=== PATIENT | female | born 1955 | race Caucasian/White ===

== ENCOUNTER → 2016-12-24 | Outpatient (CLI) | payer OTHER ==
--- NOTE | 2016-12-24 11:26 | REPMRS ---
Patient History The patient states she had a clinical breast exam in 10/2016. Patient is postmenopausal. Family history of pancreatic cancer in 2 paternal aunts and pancreatic cancer in 2 paternal uncles. Implants in both breasts, 2000. Digital Woman Screen Mammo: December 24, 2016 - Exam #: [id number] Bilateral CC and MLO view(s) were taken. Technologist: Juliette Villarreal, Technologist Prior study comparison: December 24, 2015, digital woman screen mammo performed at [facility]. December 21, 2014, digital woman screen mammo performed at [facility]. December 20, 2013, digital woman screen mammo performed at [facility]. FINDINGS: There are scattered fibroglandular densities. The visualized implant margins are smooth. Breast parenchymal density pattern is essentially symmetric. No dominant mass, clustered microcalcification, or archetectural distortion is evident on either side. No significant changes when compared with prior studies. ASSESSMENT: BI-RADS/ACR category 2 mammogram. Benign finding(s). Recommendation Routine screening mammogram of both breasts in 1 year (for women over age 40). Electronically Signed By: Jonny Anderson MD 12/24/16 [id number]
== END ==
LOC: M WHC 10:22
PROVIDERS: ATTEND Family Medicine
DX: Z12.31 Encounter for screening mammogram for malignant neoplasm of breast (principal); Z78.0 Asymptomatic menopausal state

== ENCOUNTER → 2017-12-21 | Outpatient (CLI) | payer OTHER | LOC: M WHC 10:51 | DX: Z12.31 Encounter for screening mammogram for malignant neoplasm of breast (principal); M85.80 Other specified disorders of bone density and structure, unspecified site | CPT/HCPCS: 77067 ==

== ENCOUNTER → 2018-12-22 | Outpatient (CLI) | payer OTHER ==
--- NOTE | 2018-12-22 11:18 | REPMRS ---
Patient History The patient states she has not had a clinical breast exam in over a year. Family history of pancreatic cancer in paternal uncle, pancreatic cancer in paternal aunt, pancreatic cancer in paternal uncle, pancreatic cancer in paternal aunt. Implants in both breasts, 2001. 3D TOMOSYNTHESIS WAS PERFORMED. The Heather Roman lifetime risk for breast cancer is 5.0%. Digital Woman Screen Mammo: December 22, 2018 - Exam #: [id number] Bilateral CC and MLO view(s) were taken. Technologist: Tessa Vieira Technologist Prior study comparison: December 21, 2017, bilateral digital woman screen mammo performed at [facility]. December 24, 2016, digital woman screen mammo performed at [facility]. FINDINGS: There are scattered fibroglandular densities. There has been no change in the appearance of the mammogram from the prior studies. There is a mild amount of residual fibroglandular tissue which is fairly symmetric. There is no interval development of dominant mass, architectural distortion, or clustered microcalcification suggestive of malignancy. Assessment: BI-RADS/ACR category 1 mammogram. Negative Mammogram. Recommendation Routine screening mammogram in 1 year (for women over age 40). This mammogram was interpreted with the aid of an FDA-approved computer-aided dectection system. Electronically Signed By: Matt Salomon MD 12/22/18 [id number]
== END ==
LOC: M WHC 09:50
PROVIDERS: ATTEND Family Medicine
DX: Z12.31 Encounter for screening mammogram for malignant neoplasm of breast (principal); Z80.0 Family history of malignant neoplasm of digestive organs; Z98.82 Breast implant status

== ENCOUNTER → 2019-12-23 | Outpatient (CLI) | payer MEDICARE ==
--- NOTE | 2020-01-06 14:19 | DEXA ---
AP SPINE L1 - L4 0.991 -1.6 -0.1 LT FEMUR TOTAL 0.981 -0.2 1.0 LT NECK 0.848 -1.4 0.1 RT FEMUR TOTAL 0.925 -0.7 0.5 RT NECK 0.845 -1.4 0.1 TOTAL BODY TOTAL OTHER COMMENTS: There is low bone density of the spine and hips. The density of the spine has decreased 6.3% since the initial exam on 09/02/2007. The decreased 1.8% since the most recent exam on 12/21/2017. The density of the left hip has decreased 1.1% since the initial exam on 09/02/2007. The density of the left hip has decreased 1.4% since the most recent exam on 12/21/2017. The density of the right hip has decreased 5.8% since the initial exam on 09/02/2007. The density of the right hip has decreased 1.5% since the most recent exam on 12/21/2017. FOLLOW-UP: Recommendation for the next bone density exam: 2 years. GERA
--- NOTE | 2020-01-13 11:59 | REP ---
BILATERAL MAMMOGRAM WITH 3D TOMOSYNTHESIS HISTORY: No family history of breast cancer. Tyrer-zick lifetime risk of breast cancer 4.8%. COMPARISON: Mammogram 12/22/2018, as well as other prior exams. TECHNIQUE: Bilateral mammography performed in the MLO and CC projections with routine views obtained, as well as implant displaced views with 3D tomosynthesis. FINDINGS: There is mild scattered fibroglandular density seen bilaterally. Volpara breast density is C. There is no gross extracapsular rupture of either breast implant, with no definite change compared to prior studies. On the implant displaced views of the right breast on the MLO projection, note is made of an oval smoothly marginated nodular density measuring about 9 x 6 mm superiorly. There is a possible adjacent 7 x 4 mm nodular density just inferior to this. These are definitely seen on the implant displaced right CC view, but there is a suggestion of an oval nodule on the right CC view without implant displaced. This is slightly laterally located. Otherwise no mass is seen bilaterally, and there are no suspicious clusters of microcalcifications. IMPRESSION: ACR 0 incomplete. Possibly one or two nodular opacities in the upper outer quadrant of the right breast, the larger of the two measures 9 x 6 mm and the adjacent smaller more inferior nodular density measures 7 x 4 mm. Recommend additional compression views and ultrasound to further evaluate. This mammogram was interpreted with the aid of an FDA approved computer-aided detection system. The patient states she has not had a clinical breast exam in over one year. ACR 0 incomplete. Patient letter 0. MTDD
== END ==
LOC: M WHC 10:13
PROVIDERS: ATTEND Family Medicine
DX: R92.2 Inconclusive mammogram (principal); M85.851 Other specified disorders of bone density and structure, right thigh; M85.852 Other specified disorders of bone density and structure, left thigh; M85.88 Other specified disorders of bone density and structure, other site

== ENCOUNTER → 2019-12-30 | Outpatient (CLI) | payer MEDICARE ==
--- NOTE | 2020-01-13 12:42 | REP ---
DIGITAL DIAGNOSTIC UNILATERAL RIGHT BREAST MAMMOGRAPHY WITH CAD AND FOCUSED RIGHT BREAST SONOGRAPHY HISTORY: Screening mammography from 12/23/2019 was BI-RADS Category 0 because of a nodular density in the upper outer quadrant of the right breast. Diagnostic imaging was recommended. COMPARISON: Made with prior mammography the most recent of which is from 12/22/2018 and 12/21/2017. Remote prior mammograms were reviewed dated 12/24/2015 and 11/20/2011. MAMMOGRAPHIC FINDINGS: Magnified focal spot compression craniocaudal, ML, and MLO views confirm the presence of a well-circumscribed oval-shaped nodular density anterior to the augmentation implant margin. The nodule measures 7 mm in greatest diameter. It is felt to be visible on all three projections. Scattered fibroglandular elements are seen. No other mammographic abnormality is observed. On review, this is felt to be a chronic finding and is felt to be unchanged from prior mammography dated 11/20/2011. SONOGRAPHIC FINDINGS: Targeted ultrasound of the right breast is performed in the upper outer quadrant. At 10 o'clock, 4 cm from the nipple, there is a hypoechoic 10 x 6 x 4 mm oval-shaped area with well-defined back wall and enhanced through transmission. Its long axis is parallel to the skin. No other sonographic finding. Visualized implant margins are smooth. IMPRESSION: BI-RADS Category 2 benign findings. Small stable benign nodule upper outer quadrant right breast unchanged from remote prior mammograms. Repeat screening mammography recommended in one year. GERA
== END ==
LOC: M WHC 08:53
PROVIDERS: ATTEND Family Medicine
DX: N63.11 Unspecified lump in the right breast, upper outer quadrant (principal); M85.80 Other specified disorders of bone density and structure, unspecified site

== ENCOUNTER → 2020-12-13 | Outpatient (CLI) | payer MEDICARE, OTHER ==
--- NOTE | 2020-12-18 18:05 | SLEEPCENT ---
DATE: 12/13/2020 ORDERED BY: Gualberto Joaquin Nocturnal polysomnography was performed for evaluation of sleep physiology in this patient with a history of excessive somnolence and nonrestorative sleep. There was 7 hours and 41 minutes of data reviewed. There was 387.5 minutes of sleep identified. Sleep latency was prolonged at 26 minutes. REM latency was normal at 76 minutes. Sleep architecture showed fragmentation. There were four REM cycles noted. Overall sleep efficiency was 85.4%. The electrocardiogram showed a sinus rhythm with an average heart rate of 75 beats per minute. Rate ranged 60-100. EEG showed essentially normal waveforms for wake and sleep stages. There were 244 respiratory events identified of 10 seconds in duration or greater for an apnea-hypopnea index of 37.8. The events were obstructive, not exclusive to sleep stage nor body posture. Arousals from respiratory events occurred 13.2 times per hour, and oxygen desaturations fell into the 70s. There was some minor limb activity, and snoring was noted. IMPRESSION: Obstructive sleep apnea syndrome (G47.33). Apnea-hypopnea index 37.8. RECOMMENDATION: The patient should be encouraged to return to the sleep disorder center for pressure therapy. In the interim, alcohol and sedative avoidance should be practiced and caution exercised during the operation of motor vehicles.
== END ==
LOC: M SLEEP 20:00
PROVIDERS: ATTEND Physician Assistant
DX: G47.33 Obstructive sleep apnea (adult) (pediatric) (principal)

== ENCOUNTER → 2021-01-03 | Outpatient (CLI) | payer MEDICARE, OTHER ==
--- NOTE | 2021-01-07 16:30 | SLEEPCENT ---
DATE: 01/03/2021 ORDERED BY: GEMMA Joel Nocturnal polysomnography was performed for the titration of pressure therapy in this patient with obstructive sleep apnea syndrome, apnea-hypopnea index of 37.8. For testing a ResMed F20 full face mask of small size was used, 4 cm of water pressure were applied to the circuit, and the lights were extinguished. Seven hours and 37 minutes of data were reviewed. There were 366 minutes of sleep identified. Sleep latency was normal at 13 minutes. REM latency was short at 68 minutes. Sleep architecture was good with three REM cycles. Overall sleep efficiency was 81.4%. The electrocardiogram showed a sinus rhythm with small complexes. Average heart rate was 65 beats per minute. EEG showed normal waveforms for wake and sleep. Respiratory events were fully palliated with CPAP at a pressure of 13 and remaining measures of sleep physiology were normal. IMPRESSION: Obstructive sleep apnea syndrome (G47.33). RECOMMENDATION: Nightly use of pressure therapy 13 cm of water. cc: SAJI Carbajal
== END ==
LOC: M SLEEP 20:00
PROVIDERS: ATTEND Physician Assistant
DX: G47.33 Obstructive sleep apnea (adult) (pediatric) (principal)

== ENCOUNTER → 2021-01-08 | Outpatient (CLI) | payer MEDICARE, OTHER ==
--- NOTE | 2021-01-08 13:34 | REPMRS ---
Patient History The patient states she has not had a clinical breast exam in over a year. Family history of pancreatic cancer in paternal uncle, pancreatic cancer in paternal aunt, pancreatic cancer in paternal uncle, pancreatic cancer in paternal aunt. Implants in both breasts, 2000. No Hormone Replacement Therapy Moderna vaccine 06/18/20 left arm. 07/16/20 left arm. Patient states no breast complaints today. Patient has signed MRS History Sheet. Digital Woman Screen Mammo: January 08, 2021 - Exam #: [id number] Bilateral CC and MLO view(s) were taken. Technologist: RT Devyn Prior study comparison: December 30, 2019, right breast diagnostic unilateral mammo performed at [facility]. December 23, 2019, bilateral digital woman screen mammo performed at [facility]. FINDINGS: The breast tissue is heterogeneously dense. This may lower the sensitivity of mammography. Screening. Digital screening (2D) mammography was performed bilaterally in the CC and MLO projections. Additionally, breast tomosynthesis (3D mammography) was performed bilaterally in the CC and MLO projections. Todays exam was compared to the prior exam/exams.Both Andrey and non-Andrey views were obtained. By history, the patient has no complaints of a palpable breast abnormality or other significant breast complaints. The breasts are unchanged in size and shape. There are no michel-soft tissue densities or spiculated masses. There is no internal architectural distortion. Once again, stable benign appearing calcifications are seen.There are no suspicious michel-calcific clusters. Skin thickening or nipple retraction is not present. IMPRESSION: BI-RADS Category 2- Benign Findings. There is no evidence of malignant alteration of the breasts. Followup examination recommended in one year. The Volpara volumetric breast density category is C, the breasts are heterogenously dense which may obscure small masses. This mammogram was read with the assistance of [employer] Prep,an FDA approved computer aided detection system for mammography. The lifetime Tyrer-Cuzick score is 4.5 % Due to the density of the breasts or Tyrer Cuzick score of 20% or greater, MRI/whole breast screening ultrasound is warranted. Negative x-ray reports should not delay surgical consultation if a dominant or clinically suspicious mass is present. Not all breast cancers can be identified by mammography. Therefore, we recommend that you continue to perform regular breast self-examination and physical examination and then promptly contact your physician of any concerns or changes. Adenosis and dense breasts may obscure an underlying neoplasm. Assessment: BI-RADS/ACR category 2 mammogram. Benign Findings. Recommendation Routine screening mammogram of both breasts in 1 year. Electronically Signed By: Nathan Phelan DO 01/08/21 [id number]
== END ==
LOC: M WHC 12:42
PROVIDERS: ATTEND Family Medicine
DX: Z12.31 Encounter for screening mammogram for malignant neoplasm of breast (principal)

== ENCOUNTER → 2022-01-14 | Outpatient (CLI) | payer MEDICARE, OTHER | LOC: M WHC 13:21 | PROVIDERS: ATTEND Family Medicine | DX: Z12.31 Encounter for screening mammogram for malignant neoplasm of breast (principal); Z98.890 Other specified postprocedural states ==

== ENCOUNTER → 2023-01-15 | Outpatient (CLI) | payer MEDICARE, OTHER | LOC: M WHC 10:23 | PROVIDERS: ATTEND Family Medicine | DX: Z12.31 Encounter for screening mammogram for malignant neoplasm of breast (principal); M85.80 Other specified disorders of bone density and structure, unspecified site ==

== ENCOUNTER → 2024-01-18 | Outpatient (CLI) | payer MEDICARE, OTHER | LOC: M WHC 10:32 | PROVIDERS: ATTEND Family Medicine | DX: Z12.31 Encounter for screening mammogram for malignant neoplasm of breast (principal) ==